=== PATIENT | female | born 1965 | race Caucasian/White ===

== ENCOUNTER 2017-09-25 16:05 | Inpatient (IN) | payer OTHER ==
[~2017-09-25] VITALS: Ht 180.3 cm; Wt 62.8 kg
[~2017-09-25 16:05] MED LIST: MIRUD PO; NORCO1 TA1 PO; VALACYCLOVIR1 GM PO
[2017-09-25 17:06] LABS: BASOPHIL % 0.3 % (0-2); PLATELET COUNT 295 x10^3mcL (130-400); RED CELL DISTRIBUTION WIDTH 13.6 % (11.5-14.5)
[2017-09-25 17:07] LABS: CALCIUM 9.3 mg/dL (8.5-10.1); CHLORIDE SERUM 103 mmol/L (98-107); CREATININE SERUM 0.6 mg/dL (0.6-1.0); GFR1 > 60 mL/min; GLUCOSE SERUM 85 mg/dL (74-106); POTASSIUM SERUM 3.9 mmol/L (3.5-5.1); SODIUM SERUM 143 mmol/L (136-145)
[2017-09-25 17:12] LABS: ALKALINE PHOSPHATASE 92 U/L (46-116); ALT/SGPT 15 U/L (14-59); AST/SGOT 17 U/L (15-37); BILIRUBIN TOTAL 0.2 mg/dL (0.20-1.00); TOTAL PROTEIN, SERUM 7.7 g/dL (6.4-8.2)
[2017-09-25] MEDS ORDERED: WEL75 PO (17:29)
[2017-09-25 18:07] LABS: CHOLESTEROL/HDL RATIO 5.5; MAGNESIUM 2.3 mg/dL (1.8-2.4); PHOSPHOROUS 3.1 mg/dL (2.5-4.9)
[2017-09-25 18:16] LABS: FREE T4 1.2 ng/dL (0.76-1.46); T4(THYROXINE) 9.9 ug/dL (4.7-13.3)
[2017-09-25 18:40] LABS: T3 TOTAL 1.35 ng/mL
[2017-09-25 18:54] VITALS: BP 111/71
[2017-09-25 20:55] VITALS: Ht 180.3 cm; Wt 62.8 kg
[2017-09-25 21:43] VITALS: BP 100/58
[2017-09-25 22:50] LABS: UA SPECIFIC GRAVITY <=1.005 (1.005-1.035); microscopic required? YES; urine erythrocyte TRACE (NEGATIVE)
[2017-09-25 23:43] LABS: AMPHETAMINE QUAL UR NONE DETECTED (NEG <=1000)
== END 2017-09-26 06:20 | disposition left against medical advice (07) | DRG 243 ==
LOC: ED 16:05 → DU 17:35
PROVIDERS: Family Medicine Sports Medicine
DX: K21.9 Gastro-esophageal reflux disease without esophagitis (principal); E78.5 Hyperlipidemia, unspecified; F17.210 Nicotine dependence, cigarettes, uncomplicated; Z53.21 Procedure and treatment not carried out due to patient leaving prior to being seen by health care provider; M94.0 Chondrocostal junction syndrome [Tietze]; N83.209 Unspecified ovarian cyst, unspecified side; Z82.49 Family history of ischemic heart disease and other diseases of the circulatory system; I25.2 Old myocardial infarction; Z79.899 Other long term (current) drug therapy; Z80.8 Family history of malignant neoplasm of other organs or systems
CPT/HCPCS: 83880; 84439; G0480; J7030; Q0092

== ENCOUNTER 2017-09-26 11:05 | Emergency (ER) | payer OTHER ==
[~2017-09-26] VITALS: Ht 180.3 cm; Wt 62.2 kg
[~2017-09-26 11:05] MED LIST changes: +WEL75 PO
[2017-09-26 11:38] VITALS: BP 98/69
== END 2017-09-26 12:59 | disposition home or self-care (01) ==
LOC: ED 11:05
DX: R53.1 Weakness (principal)

== ENCOUNTER 2018-02-01 17:59 | Emergency (ER) | payer OTHER ==
[~2018-02-01] VITALS: Ht 180.3 cm; Wt 62.2 kg
[2018-02-01 18:02] VITALS: Ht 180.3 cm; Wt 62.2 kg
[2018-02-01 20:50] LABS: BASOPHIL % 0.3 % (0-2); PLATELET COUNT 275 x10^3mcL (130-400)
[2018-02-01 20:52] LABS: CALCIUM 9.6 mg/dL (8.5-10.1); CARBON DIOXIDE 28.6 mmol/L (21-32); CHLORIDE SERUM 104 mmol/L (98-107); CREATININE SERUM 0.7 mg/dL (0.6-1.0); GFR1 > 60 mL/min; GLUCOSE SERUM 98 mg/dL (74-106); SODIUM SERUM 139 mmol/L (136-145)
[2018-02-01 21:32] LABS: UA SPECIFIC GRAVITY <=1.005 (1.005-1.035); microscopic required? YES; urine erythrocyte TRACE (NEGATIVE)
[2018-02-01 22:43] VITALS: BP 145/57
== END 2018-02-01 22:44 | disposition home or self-care (01) ==
LOC: ED 17:59
PROVIDERS: Emergency Medicine
DX: J01.00 Acute maxillary sinusitis, unspecified (principal); R51 Headache
CPT/HCPCS: J1200; J2765; J7030